=== PATIENT | male | born 1990 | race Caucasian/White ===

== ENCOUNTER 2020-12-28 23:08 | Emergency (ER) | payer OTHER, SELFPAY ==
[2020-12-28 23:16] VITALS: BP 117/73; PULSE 77; RESP 16; TEMP 36.8; O2SAT 97; BMI 25.7
--- NOTE | 2020-12-28 23:43 | ED.WOUNDLAC ---
HPI - Wound/Laceration General Chief Complaint: Wound/Laceration Stated Complaint: HEAD LAC - WORK INJURY Time Seen by Provider: 12/28/20 23:42 Source: patient and RN notes reviewed Mode of arrival: ambulatory Limitations: no limitations History of Present Illness HPI narrative: 30-year-old male here today for laceration. Patient was working on an airplane stood up and hit his head over a metal. 4 cm lack to his head. Patient denies any dizziness, syncope, LOC. Denies any blurred vision, ringing in his ears. Related Data Allergies Allergy/AdvReac Type Severity Reaction Status Date / Time No Known Allergies Allergy Verified 12/28/20 23:14 Review of Systems Constitutional: Constitutional: Denies weight gain and Denies weight loss Cardiovascular: Cardiovascular: Reports no additional cardiovascular complaints Respiratory: Respiratory: Reports no additional respiratory complaints Neurologic: Reports system reviewed and no additional complaints, except as documented Psychiatric: Psychiatric: Reports no additional psychiatric complaints PMFSH Social History Social History Alcohol intake: current Alcohol intake frequency: a few times a month Smoking Status: Never smoker Use of substances other than those prescribed or required for medical reasons: No Advance Directives: No Advance Directives Information Provided: No Physical Exam Vital Signs: Vital Signs: Last Vital Signs Temp 98.2 F 12/28/20 23:16 Pulse 77 12/28/20 23:16 Resp 16 12/28/20 23:16 BP 117/73 12/28/20 23:16 Pulse Ox 97 12/28/20 23:16 Body Mass Index 25.7 Const: General: healthy appearing, no acute distress and well developed Nutritional Appearance: well nourished Orientation/consciousness: patient oriented x3 Neck: Neck: Yes normal visual inspection, Yes full ROM and Yes trachea midline Thyroid: Thyroid normal Resp: Auscultation: clear to auscultation bilaterally Cardio: Rate: regular rate Rhythm: regular rhythm Skin: General skin exam: elasticity normal, turgor normal and dry skin Trauma: laceration (Head laceration 5 cm) Neuro: General: patient oriented x3 Course Course Course Narrative: Had lack sustained a work. 4 cm laceration patient hit his head when he stood up working on the airplane. His last tetanus vaccine was in 2010. Patient denies any syncope, dizziness, LOC, blurred vision or ringing in his ear. Bleeding controlled. Patient will receive tetanus vaccine and keyla he is agreeable to plan of care Reevaluation(s) Reevaluation #1: Laceration cleaned. Eleven keyla placed. Patient will follow-up in 7-10 days for staple removal. Procedures Laceration Laceration 1: Site: scalp Side (If applicable): right Size (cm): 4.5 Depth: simple, single layer Local Anesthetic: lidocaine 2% Amount of anesthesia used (mL): 6 Pre-repair: wound explored and irrigated extensively Skin layer closed with: other (11 keyla) MDM - Wound/Laceration MDM Narrative Medical decision making narrative: Head laceration. Patient stood up and hit his head on the metal while repairing airplane. Bleeding controlled. Denies any dizziness, syncope. Differential Diagnosis Differential diagnosis: Likely laceration Medical Records Attestation: I reviewed the patient's medical records. Discharge Plan Discharge Clinical Impression: Laceration Patient Disposition: Home, Self-Care Instructions: Staple Care (ED), Head Laceration (ED) Additional Instructions: Your seen here today for laceration to your head. You are giving tetanus vaccine. You wound was closed with 11 keyla. Staple removal in 7-10 days. Please return to ED sooner if there is any signs and symptoms of infection. You may come to emergency department if you experience any concerning symptoms.
[2020-12-29] MEDS: Diphth,Pertus(ACell),Tet Adult 0.5 ML SYRINGE IM (00:03)
[2020-12-29] MEDS: Lidocaine HCl 2 % MPF 5 ML VIAL 10 ML INFILTRATI (02:32)
== END 2020-12-29 02:33 | disposition home or self-care (01) ==
PROVIDERS: Emergency Provider Emergency Medicine
DX: S01.01XA Laceration without foreign body of scalp, initial encounter (principal); W22.8XXA Striking against or struck by other objects, initial encounter; Y93.89 Activity, other specified; Y92.520 Airport as the place of occurrence of the external cause; Y99.0 Civilian activity done for income or pay
CPT/HCPCS: 12032; 90471; 90715; 99284

== ENCOUNTER → 2021-01-03 14:09 | Outpatient (BNVA) | payer OTHER, SELFPAY | PROVIDERS: Visit Provider Physician Assistant Medical | DX: S01.01XD Laceration without foreign body of scalp, subsequent encounter (principal); L03.811 Cellulitis of head [any part, except face]; S06.0X0D Concussion without loss of consciousness, subsequent encounter; W22.09XD Striking against other stationary object, subsequent encounter | CPT/HCPCS: 99203 ==

== ENCOUNTER → 2021-01-05 14:45 | Outpatient (BNVA) | payer OTHER, SELFPAY | PROVIDERS: Visit Provider Physician Assistant Medical | DX: S01.01XD Laceration without foreign body of scalp, subsequent encounter (principal); X58.XXXD Exposure to other specified factors, subsequent encounter | CPT/HCPCS: 99212; 99213 ==

== ENCOUNTER 2021-02-16 15:31 | Emergency (ER) | payer OTHER, SELFPAY ==
--- NOTE | ~2021-02-16 | XR_ITS ---
EXAMINATION: XR KNEE, LEFT CLINICAL INFORMATION: Knee pain and swelling COMPARISON: None TECHNIQUE: Two views of the left knee. FINDINGS: Bones and soft tissues are normal. No fracture or joint effusion. Alignment is anatomic. Joint spaces are well maintained. No abnormal soft tissue calcification. XR/XR knee LT 2V IMPRESSION: Normal left knee.
[2021-02-16 16:37] VITALS: BP 107/71; PULSE 92; RESP 18; TEMP 37.3; O2SAT 100; BMI 26.4
--- NOTE | 2021-02-16 18:06 | ED.LOWEXIN ---
HPI - Extremity Injury (Lower) General Chief Complaint: Extremity Injury, Lower Stated Complaint: knee injury - work related Time Seen by Provider: 02/16/21 17:15 Source: patient Mode of arrival: ambulatory Limitations: no limitations History of Present Illness HPI Narrative: 31-year-old male presenting to the ED with complaints of left knee redness/swelling/pain for the past 2 days worse today. Reports that he was recently working in a tight space and was kneeling on his knees for prolonged period of time. Denies any fevers or decreased range of motion. Denies any other symptoms complaints or concerns at this time. Related Data Previous Rx's Medication Instructions Recorded acetaminophen [Tylenol Extra 1,000 mg PO QID PRN #14 tab 02/16/21 Strength] cephalexin 500 mg PO BID 10 Days #20 cap 02/16/21 doxycycline monohydrate 100 mg PO BID 10 Days #20 cap 02/16/21 ibuprofen 800 mg PO Q8H PRN #14 tab 02/16/21 oxycodone 5 mg PO BID PRN #10 tab 02/16/21 Allergies Allergy/AdvReac Type Severity Reaction Status Date / Time No Known Allergies Allergy Verified 12/28/20 23:14 Review of Systems Review of Systems: Constitutional : No changes in activity, No lethargy, No recent prior head injury, No agitation, No increased fussiness ENT/Mouth : No Ear Pain, No Nasal discharge/drainage Eyes: No Eye Pain, No Swelling, No Redness, No Foreign Body, No Vision Changes Cardiovascular : No Chest Pain, No SOB Respiratory : No Cough Gastrointestinal : No Nausea, No Vomiting, No abdominal Pain Genitourinary : No Dysuria, No Urinary Frequency, No Urinary Incontinence, No Urgency, No Flank Pain Musculoskeletal : + joint pain, No neck stiffness, No back pain/injury Skin : No lacerations Neuro : No unsteady gait, No Paresthesias, No Loss of Consciousness, No altered mental status, No Headache Yes all other systems are reviewed and are negative [facility] Past Medical History Attestation statement: The following information was validated with the patient. Social History Social History Alcohol intake: current Alcohol intake frequency: a few times a month Advance Directives: No Advance Directives Information Provided: Yes Physical Exam Vital Signs: Vital Signs: Last Vital Signs Temp 99.1 F 02/16/21 16:37 Pulse 92 02/16/21 16:37 Resp 18 02/16/21 16:37 BP 107/71 02/16/21 16:37 Pulse Ox 100 02/16/21 16:37 Body Mass Index 26.4 vital signs have been reviewed as normal and appeared to be correct. Blood pressure normal. Heart rate normal. Respiration rate normal. Temperature normal. Oxygen saturation normal. Appearance: Alert. Oriented X3. No acute distress. Head: Normal external exam. Normocephalic. Atraumatic. Eyes: PERRLA. EOMI. Conjunctiva and sclera normal. Eyelids normal. ENT: Pharynx normal. Uvula midline. Moist mucous membranes. Neck: Normal inspection. Neck supple. FROM. No adenopathy. No meningeal signs. CVS: Normal heart rate and rhythm. Heart sound normal. Pulses normal throughout. No murmurs/rales/gallops. Respiratory: No respiratory distress. Painless inspiration. Back: Full range of motion noted. No rashes/lesion/induration/fluctuance or signs of infection noted. Skin: Skin warm and dry. Normal skin color. Normal skin turgor. No rashes/lesions/lacerations noted. Extremities: To left knee patellar aspect patient has mild soft tissue swelling with erythema noted. Although patient has full range of motion of the knee joint no fluctuance/induration/joint effusion/streaking. No lower extremity edema. No calf tenderness is noted. Otherwise all other Extremities exhibit normal range of motion and nontender. Neuro: Oriented X 3. No motor deficit. No sensory deficit. Reflexes normal. Normal steady gait. No focal neuro deficits noted. Vascular: + radial pulses/+ 2 distal pedal pulses/+2 dorsalis pedis b/l. Normal cap refill. No cyanosis noted to upper extremity nails and lower extremity toes nails. Course Course Course Narrative: 31-year-old male presenting to the ED after kneeling on his knees for prolonged period of time while at work with left knee pain/swelling/redness. Although on exam patient has full range of motion no laxity is noted. Appears to have a cellulitic infection. X-ray negative for joint effusion. Not consistent with septic joint. Will DC home with antibiotics and symptomatic treatment along with instructions return if any new or worsening symptoms to follow up with primary care provider. Patient understands agrees with this plan. MDM - Extremity Injury (Lower) Medical Records Attestation: I reviewed the patient's medical records. Imaging Data Left knee x-ray: Attestation: I personally reviewed and interpreted this imaging study as follows: Radiologist's impression: FINDINGS: Bones and soft tissues are normal. No fracture or joint effusion. Alignment is anatomic. Joint spaces are well maintained. No abnormal soft tissue calcification. XR/XR knee LT 2V IMPRESSION: Normal left knee. Discharge Plan Discharge Clinical Impression: Cellulitis of knee, left, Work related injury Patient Disposition: Home, Self-Care Instructions: Cellulitis (ED), Return to Work Instructions (ED) Prescriptions: New ibuprofen 800 mg tablet 800 mg PO Q8H PRN (Reason: pain) Qty: 14 RF: 0 acetaminophen [Tylenol Extra Strength] 500 mg tablet 1,000 mg PO QID PRN (Reason: fever or pain) Qty: 14 RF: 0 doxycycline monohydrate 100 mg capsule 100 mg PO BID 10 Days Qty: 20 RF: 0 cephalexin 500 mg capsule 500 mg PO BID 10 Days Qty: 20 RF: 0 oxycodone 5 mg tablet 5 mg PO BID PRN (Reason: pain) Qty: 10 RF: 0 Referrals: [facility] [Provider Group] - 2 days Physician,None [Primary Care Provider] - 2 days (your pcp ) Stand Alone Forms: Work/School Release Print Language: [place]
== END 2021-02-16 18:29 | disposition home or self-care (01) ==
PROVIDERS: Emergency Provider Internal Medicine
DX: L03.116 Cellulitis of left lower limb (principal)
CPT/HCPCS: 73560; 99283

== ENCOUNTER → 2021-02-20 14:01 | Outpatient (BNVA) | payer OTHER, SELFPAY | PROVIDERS: Visit Provider Physician Assistant Medical | DX: S80.02XA Contusion of left knee, initial encounter (principal); L03.116 Cellulitis of left lower limb; X58.XXXA Exposure to other specified factors, initial encounter | CPT/HCPCS: 99213 ==

== ENCOUNTER → 2021-02-26 13:14 | Outpatient (BNVA) | payer OTHER, SELFPAY | PROVIDERS: Visit Provider Physician Assistant | DX: S89.92XA Unspecified injury of left lower leg, initial encounter (principal); X58.XXXA Exposure to other specified factors, initial encounter; L03.116 Cellulitis of left lower limb | CPT/HCPCS: 99213 ==

== ENCOUNTER → 2021-03-07 14:18 | Outpatient (BNVA) | payer OTHER, SELFPAY | PROVIDERS: Visit Provider Physician Assistant | DX: S89.92XD Unspecified injury of left lower leg, subsequent encounter (principal); X58.XXXD Exposure to other specified factors, subsequent encounter | CPT/HCPCS: 99213 ==

== ENCOUNTER 2021-03-09 15:40 | Outpatient (REF) | payer OTHER, SELFPAY ==
--- NOTE | ~2021-03-09 | MR_ITS ---
EXAMINATION: MR KNEE WITHOUT CONTRAST, LEFT CLINICAL INFORMATION: Injury, pain, swelling. Patient documents patellar pain. COMPARISON: None TECHNIQUE: MRI of the knee without contrast was performed using routine sequences on a high-field scanner. FINDINGS: MENISCI: Medial Meniscus: Intact. Lateral Meniscus: Intact. LIGAMENTS: Cruciate: Intact. Collateral: Intact. EXTENSOR MECHANISM: Intact. There is anterior soft tissue swelling with small edema/fluid, overlying the patella and the proximal patellar tendon. This is nonspecific, could be related to sequela of trauma, with nonspecific edema/fluid or bursitis. ARTICULAR CARTILAGE/BONE: No focal cartilage loss in 3 compartments. No suspicious marrow signal changes. No fracture. JOINT FLUID AND BURSAE: Small joint fluid. Small Rowley's cyst. MR/MR knee LT wo con IMPRESSION: 1. Menisci appear intact without discrete tear. 2. Anterior soft tissue swelling overlying the patella and the patellar tendon, with nonspecific edema/fluid or bursitis. 3. No acute osseous abnormality. 4. Small Rowley's cyst.
== END 2021-03-09 15:41 | disposition home or self-care (01) ==
LOC: HO.MRI 15:40
PROVIDERS: Visit Provider Internal Medicine
DX: M25.562 Pain in left knee (principal); M25.462 Effusion, left knee
CPT/HCPCS: 73721

== ENCOUNTER → 2021-03-16 14:55 | Outpatient (BNVA) | payer OTHER, SELFPAY | PROVIDERS: Visit Provider Physician Assistant | DX: M70.52 Other bursitis of knee, left knee (principal) | CPT/HCPCS: 99202 ==

== ENCOUNTER → 2021-04-20 14:24 | Outpatient (BNVA) | payer OTHER, BC, SELFPAY | PROVIDERS: Visit Provider Physician Assistant | DX: M70.52 Other bursitis of knee, left knee (principal) | CPT/HCPCS: 99212 ==

== ENCOUNTER 2021-05-29 14:00 | Outpatient (RCR) | payer OTHER, BC, SELFPAY ==
--- NOTE | 2021-04-05 17:35 | MHC.PT.EP ---
[facility] [place] Office [place] Office [place] Office [address] Simeon Christianson [address] [phone] F: [phone] F: [phone] F: [phone] F: [phone] Physical Therapy Plan of Care Date of Evaluation: Date of Surgery: N/A Diagnosis: Other bursitis of L knee Assessment: Pt is a 31yo M who presents to PT after experiencing pain and swelling in L knee after prolonged kneeling at work. His L knee x-ray was negative, L knee MRI revealed anterior tissue swelling with edema/bursitis. He is limited functionally by pain, strength, soft tissue restrictions, and proper body mechanics. He is limited functionally by kneeling, squatting, prolonged standing, walking, and stairs. His signs and symptoms may be consistent with prepatellar bursitis of the L knee. He is a good candidate for skilled PT services to address current impairments and facilitate return to PLOF. Frequency and Duration: The patient will be seen 2x/week for 4 weeks Short Term Goals: Pt will be I with [facility] to promote self management of symptoms. Pt will report pain < 5/10 after functional mobility [employer] Goals: Pt will tolerate standing >30 min with pain < 1/10 Pt will tolerate squatting with improved mechanics and pain < 1/10 Pt will demonstrate improvements in functional mobility as evidenced by significant improvement in LEFI outcome measure Treatment Plan: Modalities to reduce pain, spasms and effusion. Manual therapy to restore motion and function. Therapeutic exercise to improve strength and flexibility. Neuromuscular re-education for posture and balance. Therapeutic activities to return to functional activities of daily living. Electronically signed by: Romelia Vazquez, PT, DPT Please sign and return to therapist. Thank you for your referral.
--- NOTE | 2021-05-30 18:14 | MHC.PT.DC ---
[facility] [place] Office [place] Office [place] Office [address] Simeon Christianson [address] [phone] F: [phone] F: [phone] F: [phone] F: [phone] Physical Therapy Discharge Report Diagnosis: Other bursitis of L knee Date of Surgery: N/A Date of Evaluation: 04/05/21 Date of Discharge: 05/30/21 Treatments to Date: 9 Cancellations to Date: No Shows to Date: 2 Discharge Status: Achieved Goals Improved Function Independent with HEP Discharge Summary: Pt last PT visit was 05/29/21. Pt has made good progress since SOC. He has improved L knee ROM and strength throughout course of PT. He demonstrated ability to squat and lift 50# with proper mechanics. Pt has reached functional plateau with skilled PT services at this time. Pt is I with [facility]P and is being D/C from skilled PT services to [facility]. No further PT services indicated at this time. Electronically signed by: Romelia Vazquez, PT, DPT Please sign and return to therapist. Thank you for your referral.
== END 2021-06-01 07:53 | disposition home or self-care (01) ==
LOC: HO.PT 14:00
PROVIDERS: Visit Provider Physician Assistant
DX: M70.52 Other bursitis of knee, left knee (principal)
CPT/HCPCS: 97110; 97161; 97530

== ENCOUNTER → 2021-06-01 14:21 | Outpatient (BNVA) | payer OTHER, BC, SELFPAY | PROVIDERS: Visit Provider Physician Assistant | DX: M70.52 Other bursitis of knee, left knee (principal); F41.9 Anxiety disorder, unspecified | CPT/HCPCS: 99212 ==